=== PATIENT | female | born 2000 | race Two or more races ===

== ENCOUNTER 2024-05-22 19:30 | Observation (INO) | payer MEDICAID, SELFPAY ==
[2024-05-22 19:48] VITALS: BP 138/85; PULSE 115
[2024-05-22 19:52] VITALS: BP 141/87; PULSE 111
[2024-05-22 19:56] VITALS: BP 128/72; PULSE 105
[2024-05-22 21:08] VITALS: BMI 41.4
== END 2024-05-22 20:30 | disposition home or self-care (01) ==
PROVIDERS: Admitting Provider Obstetrics & Gynecology; Visit Provider Obstetrics & Gynecology
DX: O36.8120 Decreased fetal movements, second trimester, not applicable or unspecified (principal); Z3A.26 26 weeks gestation of pregnancy
CPT/HCPCS: 59025; 59899

== ENCOUNTER 2024-08-08 13:00 | Outpatient (RCR) | payer MEDICAID, SELFPAY ==
--- NOTE | 2024-07-25 13:26 | XR_ITS ---
Examination: Biophysical profile, ultrasound Date and time of exam: July 25, 2024 1335 hours INDICATIONS: Diagnosis obesity complicating Technique: Multiple transabdominal sonographic images of the pelvis abdomen obtained. Attention is directed to the breathing movement, gross body movement, amniotic fluid volume and tone. Findings: Amniotic fluid index 20.4 cm Total biophysical profile is 8 of 8. breathing movement is 2. Gross body movement is 2. tone is 2. Qualitative amniotic fluid volume is 2 Impression: Biophysical profile is 8 of 8.
[2024-07-25 14:31] VITALS: BP 125/67; PULSE 99; RESP 17; TEMP 36.9
--- NOTE | 2024-08-08 13:15 | XR_ITS ---
Examination: Biophysical profile, ultrasound Date and time of exam: August 08, 2024 1319 hrs. Indications: Diagnosis obesity complicating Technique: Multiple transabdominal sonographic images of the pelvis abdomen obtained. Attention is directed to the breathing movement, gross body movement, amniotic fluid volume and tone. Findings: Amniotic fluid index 17.8 cm Total biophysical profile is 8 of 8. breathing movement is 2. Gross body movement is 2. tone is 2. Qualitative amniotic fluid volume is 2 Impression: Biophysical profile is 8 of 8.
[2024-08-08 14:00] VITALS: BP 120/65; PULSE 99; RESP 17; TEMP 36.8
== END 2024-08-08 23:59 | disposition home or self-care (01) ==
LOC: S4S1 13:00
PROVIDERS: Referring Provider Nurse Practitioner Women's Health; Visit Provider Nurse Practitioner Women's Health
DX: O99.213 Obesity complicating pregnancy, third trimester (principal); E66.9 Obesity, unspecified; Z3A.37 37 weeks gestation of pregnancy
CPT/HCPCS: 59025; 76819

== ENCOUNTER 2024-08-16 01:43 | Inpatient (IN) | payer MEDICAID, SELFPAY ==
[2024-08-16] VITALS (27 sets, daily range): BP systolic 124–150; BP diastolic 60–101; PULSE 86–123; RESP 16–18; TEMP 36.6–36.9
--- NOTE | 2024-08-16 01:39 | PC.NURSE ---
08/16/24 at 0130: Cornell Yeager CNM called, aware of Induction order. Pt in route. Orders received for IOL, admit as indicated per protocol. Pt is GBS Negative. Order for Cytotec if Jett < 8, OB u/s if unable to verify presentation. May place IUPC and FSE PRN. torb and verified.
--- NOTE | 2024-08-16 01:48 | XR_ITS ---
Examination: Complete OB ultrasound greater than 14 weeks Date and time of exam: August 16, 2024 0325 hrs. Indications: Admission for labor induction, unknown presentation, unknown weight, diagnosis obesity complicating Findings: Viable intrauterine single fetus with single amniotic sac presentation cephalic Cardiac motion 137 BPM Placenta posterior grade 2 Umbilical cord insertion seen Amniotic fluid index 18.7 cm Ovaries obscured by bowel gas. Composite estimated gestational age based on BPD, head circumference, abdominal circumference, femur length is 39 weeks 0 days Estimated weight 3656 g. Survey of intracranial anatomy, spinal anatomy, abdominal anatomy, four-chamber heart performed with no abnormalities identified. Impression: Viable intrauterine gestation cephalic presentation.
[2024-08-16] MEDS: RINGERS LACTATED 1000 ML 1,000 ML 100 ML IV (02:00)
[2024-08-16 03:05] LABS: Fibrinogen 666 mg/dL (175-375); INR 0.9 (0.9-1.3); Partial Thromboplastin Time 23.5 Seconds (22.0-36.0); Prothrombin Time 9.8 Seconds (9.0-12.2)
[2024-08-16 03:31] LABS: Basophils % (Auto) 0 % (0-2.5); Eosinophils % (Auto) 0 % (0-10); Hematocrit 36.1 % (36.0-46.0); Hemoglobin 12.3 g/dL (12.0-16.0); Immature Granulocytes % (Auto) 0 % (0-0); Immature Granulocytes Auto 0.03 Thou/mm3 (0.00-0.00); Lymphocytes # (Auto) 3.6 Thou/mm3 (1.0-4.8); Lymphocytes % (Auto) 37 % (10-50); Mean Corpuscular HGB Conc 34.1 g/dl (31.0-37.0); Mean Corpuscular Hemoglobin 27.3 pg (25.0-35.0); Mean Corpuscular Volume 80 fL (80-100); Monocytes # (Auto) 0.6 Thou/mm3 (0.0-0.8); Monocytes % (Auto) 6 % (0-12); Neutrophils # (Auto) 5.4 Thou/mm3 (1.8-7.7); Neutrophils % (Auto) 56 % (37-80); Nucleated Red Blood Cell % 0 /100 WBC (0); Platelet Count 272 Thou/mm3 (140-440); Red Blood Count 4.51 Miln/mm3 (4.00-5.20); White Blood Count 9.6 Thou/mm3 (3.6-11.0)
[2024-08-16 03:47] LABS: Alanine Aminotransferase 10 U/L (10-49); Albumin/Globulin Ratio 1.4 (1.2-2.2); Alkaline Phosphatase 141 U/L (46-116); Anion Gap 10 (7-16); Aspartate Amino Transferase 12 U/L (0-34); BUN/Creatinine Ratio 18 Ratio (12-20); Bilirubin,Total 0.3 mg/dL (0.3-1.2); Blood Urea Nitrogen 9 mg/dL (9-23); Calcium 9.2 mg/dL (8.3-10.6); Calcium (Corrected) 9.2 mg/dL (8.5-10.1); Chloride 108 mMol/L (98-107); Creatinine (Component) 0.5 mg/dL (0.6-1.3); Globulin 2.9 gm/dL (2.3-3.5); Glucose 96 mg/dL (74-106); Osmolality,Calculated 274 (275-295); Potassium 4.1 mMol/L (3.4-5.1); Sodium 138 mMol/L (136-145); Total Protein 6.9 gm/dL (5.7-8.2); Uric Acid 5.4 mg/dL (3.1-7.8); eGFR > 60 See Note
[2024-08-16 04:05] LABS: Syphilis Nonreactive (Nonreactive)
[2024-08-16 04:19] LABS: Collection Type, Urine Clean Catch
[2024-08-16 04:25] LABS: Bilirubin,Urine Negative (Negative); Blood,Urine Negative (Negative); Clarity,Urine Clear (Clear/Hazy); Color,Urine Lt-Yellow (Lt Yel-Yel); Glucose, Urine Negative (Negative); Hyaline Casts,Urine < 1 /hpf (0-1); Ketones,Urine Negative (Negative); Leukocyte Esterase,Urine Negative (Negative); Nitrite,Urine Negative (Negative); Protein,Urine Negative (Neg - Trace); RBC,Urine < 1 /hpf (0-3); Squamous Epithelial Cell,Urine 1 /hpf (0-5); Urobilinogen,Urine Negative mg/dL (0.0-1.0); WBC,Urine 1 /hpf (0-5)
--- NOTE | 2024-08-16 05:49 | PRELIM_ITS ---
Obstetric ultrasound with Doppler with doppler and wave doppler spectral analysis. August 16, 2024 0325 hours Clinical history: Presentation and EFW. Comparison: No prior study is available for comparison. Findings: There is a gravid uterus with a live fetus in cephalic presentation of mean gestational age 39 weeks and 0 days (by biometry). cardiac activity is present at a heart rate of 137 beats per minute. The placenta is posterior in location, maturity grade 2. There is no evidence of placenta previa or retroplacental hemorrhage. Amniotic fluid is adequate (THANIA = 18.7 cm). Estimated weight is 3656 grams+/- 541 grams. Impression: Gravid uterus with a single live fetus in cephalic presentation of mean gestational age 39 weeks 0 days. Report Electronically Signed By: Sai Chang 08/16/2024 5:48:31 AM [EST]
[2024-08-16] MEDS: MISOPROSTOL 50 mCg TABLET PO ×4 (07:16→19:50)
[2024-08-16 08:31] LABS: Creatinine,Random Urine 86 mg/dL (30-125)
--- NOTE | 2024-08-16 09:43 | ESHP_ITS ---
Documentation for date of: 08/16/24 OB Labor/Induct. HPI History of Present Illness Chief complaint: scheduled IOL : 1 Para: 0 Term pregnancies: 0 pregnancies: 0 Living children: 0 History of Abortions: Spontaneous and Elective: 0 History of Vaginal deliveries: 0 History of sections: No History of : No Date of last menstrual period: 11/10/23 GILBERT: 08/23/24 Gestational Age (weeks): 39 Gestational Age (days): 0 Gestational age based on last menstrual period: 40 Indication for induction: medical complication (A1GDM, obesity) History of present illness: Patient presents for scheduled induction of labor. Indication: A1GDM in the setting of obesity, BMI 42. No regular/painful ctx. No LOF. No vaginal bleeding. Normal movement. History of Present Dating criteria: based on 1st trimester US only Adequate Care: Yes Obstetrical complications: gestational diabetes (diet controlled) and other (BMI 42) Labs Maternal Blood Type: A Pos Labs: Positive: Rubella Titre and Negative: RPR, Hepatitis B, HIV, Chlamydia, Gonorrhea and Group Beta Strep Review of Systems Review of Systems Narrative Review of Systems: Review of Systems Systems Reviewed: All systems reviewed, normal except as documented Constitutional Constitutional: Denies body ache(s), Denies chills, Denies fever(s) and Denies headache(s) ENT Ears, Nose, Mouth, and Throat: Denies headache(s) and Denies vertigo Cardiovascular Cardiovascular: Denies chest pain, Denies palpitations, Denies dyspnea and Denies syncope Respiratory Respiratory: Denies cough, Denies dyspnea Gastrointestinal Gastrointestinal: Denies nausea and Denies vomiting Neurologic Neurologic: Denies convulsions, Denies headache(s), Denies other visual disturbances, Denies syncope and Denies vertigo Past Medical History Family History OTHER FAMILY HX: non-contributory Surgical History SURGICAL: Negative Section OTHER SURGICAL HX: denies any Social History SOCIAL: Good social support. No ETOH, illicit drug use or tobacco use Past Medical History Comments PMH COMMENT: BMI 42 Meds Home Medications and Allergies Home Medications ?Medication ?Instructions ?Recorded ?Confirmed ?Type folic acid 0.8 mg capsule 0.8 mg PO QDAY 05/22/24 03/0 11/05 History vitamins no.159-iron 1 tab PO QDAY 05/22/24 0 08/16/24 History fumarate 28 mg-folic acid 800 mcg tablet ( Vitamin) Allergies Allergy/AdvReac Type Severity Reaction Status Date / Time No Known Allergies Allergy Verified 08/16/24 04:44 OB Exam Physical Exam Vital signs: Temp Pulse Resp BP 98.4 F 123 H 18 136/85 H 08/16/24 07:09 08/16/24 07:39 08/16/24 07:09 08/16/24 07:39 Narrative: General: well developed, well nourished, no acute distress, conversant Cardiac: normal heart rate Lungs: breathing without distress Abdomen: soft, gravid, non-tender, no rebound or guarding Extremities: no pain with palpation of calves Detailed Labor and Delivery Exam Dilation (cm): 0 Effacement (%): 0 Cervix position: posterior station: -3 Consistency: medium Presentation: Vertex Membranes: intact monitor accelerations: 15x15 monitor decelerations: None termite helper variability: Moderate (11-25) Contraction frequency (min): no ctx pattern OB Results Labs 08/16/24 01:50 08/16/24 01:58 Labs: Short CBC 08/16/24 Range/Units 01:50 WBC 9.6 (3.6-11.0) Thou/mm3 Hgb 12.3 (12.0-16.0) g/dL Hct 36.1 (36.0-46.0) % Plt Count 272 (140-440) Thou/mm3 BMP 08/16/24 08/16/24 08/16/24 01:58 01:58 01:58 Sodium Cancelled 138 Potassium Cancelled 4.1 Chloride Cancelled Carbon Dioxide BUN Creatinine Glucose Calcium 08/16/24 08/16/24 08/16/24 01:58 01:58 01:58 Sodium Potassium Chloride 108 H Carbon Dioxide Cancelled 20.0 BUN Cancelled 9 Creatinine Cancelled Glucose Calcium 08/16/24 08/16/24 08/16/24 01:58 01:58 01:58 Sodium Potassium Chloride Carbon Dioxide BUN Creatinine 0.5 L Glucose Cancelled 96 Calcium Cancelled 9.2 Liver Function 08/16/24 08/16/24 08/16/24 Range/Units 01:58 01:58 01:58 Total Bilirubin Cancelled 0.3 AST Cancelled 12 ALT Cancelled Alkaline Phosphatase Albumin 08/16/24 08/16/24 08/16/24 Range/Units 01:58 01:58 01:58 Total Bilirubin AST ALT 10 Alkaline Phosphatase Cancelled 141 H Albumin Cancelled 4.0 Urine 08/16/24 Range/Units 03:25 Urine Color Lt-Yellow (Lt Yel-Yel) Urine Clarity Clear (Clear/Hazy) Urine pH 6.0 (5.0-7.0) Ur Specific [place] 1.020 (1.001-1.035) Urine Protein Negative (Neg - Trace) Urine Glucose (UA) Negative (Negative) Impressions Impression: Examination: Complete OB ultrasound greater than 14 weeks Date and time of exam: August 16, 2024 0325 hrs. Indications: Admission for labor induction, unknown presentation, unknown weight, diagnosis obesity complicating Findings: Viable intrauterine single fetus with single amniotic sac presentation cephalic Cardiac motion 137 BPM Placenta posterior grade 2 Umbilical cord insertion seen Amniotic fluid index 18.7 cm Ovaries obscured by bowel gas. Composite estimated gestational age based on BPD, head circumference, abdominal circumference, femur length is 39 weeks 0 days Estimated weight 3656 g. Survey of intracranial anatomy, spinal anatomy, abdominal anatomy, four-chamber heart performed with no abnormalities identified. Impression: Viable intrauterine gestation cephalic presentation. OB Assessment & Plan Assessment and Plan (1) Encounter for induction of labor: Status: Acute Assessment and plan: Pricila is a 23yo with SIUP at 39&0wk presenting for IOL for A1GDM in the setting of BMI 42. SCE: fingertip/thick/-3. Vitals wnl, benign exam. Reassuring assessment overall. Cephalic on ultrasound, EFW 3656g. care: Good care with [facility] PMhx/PNC significant for: A1GDM (normal starting HgbA1c) BMI 42 Had an episode of mild range bp's in with no recurrence. On presentation had some mild range bp's that resolved to normal. 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 Discussed with patient option for parker cervical bulb once 1cm dilated and she is amenable. -Anticipate -Safe to proceed Marlen Fierro MD (2) Gestational diabetes: Status: Acute (3) Obesity affecting : Status: Acute (2) Gestational diabetes Qualifiers: Gestational diabetes mellitus control: diet-controlled Trimester: third trimester Qualified Code(s): O24.410 - Gestational diabetes mellitus in , diet controlled (3) Obesity affecting Qualifiers: Trimester: third trimester Obesity type affecting : unspecified obesity Qualified Code(s): O99.213 - Obesity complicating , third trimester
[2024-08-17] VITALS (92 sets, daily range): BP systolic 120–169; BP diastolic 67–106; PULSE 70–125; RESP 16–19; TEMP 36.7–36.9; O2SAT 97–99
--- NOTE | 2024-08-17 00:47 | PD.LDPN ---
Documentation for date of: 08/17/24 OB Labor Progress Note Pelvic Exam Dilation (cm): 1 Effacement (%): 25 station: -3 Contractions Contraction frequency: q3-5min Assessment and Plan Comments: Patient doing well, has received 4 doses of oral cytotec. Vitals: mild range bp's, afebrile Cat I FHRT Ctx q3-5min SCE: 07/08/-3, cervical parker balloon placed with 40cc NS in uterine balloon only, well tolerated Plan Await parker balloon falling out Continue cytotec overnight if ctx pattern allows Urine p:c ratio ordered this morning but only urine creatinine was performed. Will re-order with new urine sample. Continue to closely monitor bp's If bp increases into severe range, will treat with medications and initiate IV MgSO4 CEFM Safe to proceed Marlen Fierro MD
[2024-08-17] MEDS: fentaNYL CIT INJ 50 mCg/ML AMP 2ML 100 MCG IV (02:23)
[2024-08-17 04:02] LABS: Creatinine,Random Urine 90 mg/dL (30-125)
[2024-08-17 05:09] LABS: Protein Total, Random Urine 26 mg/dL (1-14)
[2024-08-17] MEDS: MISOPROSTOL 50 mCg TABLET PO ×3 (08:12→20:00)
--- NOTE | 2024-08-17 16:14 | PD.LDPN ---
Documentation for date of: 08/17/24 OB Labor Progress Note Pain Control Pain control: tolerating well Pelvic Exam Dilation (cm): 3 Effacement (%): 50 station: -3 Amniotic membrane status: Intact Contractions Monitor mode: External Contraction frequency: 2-4 Contraction duration: 60-80 Contraction phase: Contraction Contraction intensity: Moderate Status status: Category l Assessment and Plan Assessment: induction ongoing Plan OB labor note: continuous present management Comments: Cervical balloon fell out Pt has made some cervical change but fetus is still very high Pt is in high fowlers Continue cytotec Dr. Clifford updated Anticipate
--- NOTE | 2024-08-17 18:59 | PD.LDPN ---
Documentation for date of: 08/17/24 OB Labor Progress Note Pain Control Pain control: tolerating well Pelvic Exam Dilation (cm): 3 Effacement (%): 60 station: -3 Amniotic membrane status: Bulging Contractions Monitor mode: External Contraction frequency: 2-4 Contraction phase: Contraction Contraction intensity: Moderate Status status: Category l Assessment and Plan Assessment: induction ongoing Plan OB labor note: continuous present management Comments: Pt is on her 2nd round of cytotec, Pt to get her 3rd dose and then wants an epidural to help control her BPs Plan to move onto pitocin low dose after the 3rd cytotec Unable to break her water due to -[address] Clifford Anticipate
[2024-08-18] VITALS (173 sets, daily range): BP systolic 89–181; BP diastolic 58–109; PULSE 10–165; RESP 13–19; TEMP 36.6–37.2; O2SAT 90–100; BMI 43.8
[2024-08-18] MEDS: RINGERS LACTATED 1000 ML 1,000 ML 100 ML IV ×2 (00:10→05:57)
[2024-08-18] MEDS: OXYTOCIN in NS 30 units 30 UNIT/500 ML BAG IV (00:27)
--- NOTE | 2024-08-18 08:37 | ESPR_ITS ---
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 Pt s/p buccal cytotec 50 ug x 3, signed out to me at 0700. On 6 mu/min pitocin Pelvic Exam Dilation (cm): 3-4 Effacement (%): 70 station: -2 Amniotic membrane status: Bulging Comments: AROMed pt 0830, clear fluid, IUPC placed Contractions Monitor mode: External Contraction frequency: 2-4 Contraction phase: Contraction Contraction intensity: Moderate Status status: Category l Assessment and Plan Pitocin rate (mU/min): 6 Assessment: active labor Plan OB labor note: continuous present management Comments: OK for epidural, continue to increase pitocin as needed
--- NOTE | 2024-08-18 17:35 | PC.NURSE ---
into room to discuss pt poc pt has previously refused iupc, refused pitocin from md, pt states she does not know what to do, all poc options were discussed as provided by md boyd, pt has agreed to redo her epidural but has requested that we call in a different provider pt has also agreed if adequeate pain relief is achieved she will agree to pitocin to be started. rey morrison called via phone to request epidural placement, rey lucia made aware. rey snider agrees to poc. primary rn marciano hough informed of pt poc agreement.
--- NOTE | 2024-08-18 19:47 | PD.LDPN ---
Documentation for date of: 08/18/24 OB Labor Progress Note Pain Control Pain control: tolerating well and epidural Pelvic Exam Dilation (cm): 3-4 Effacement (%): 70 station: -2 Amniotic membrane status: Ruptured Contractions Monitor mode: Internal Contraction frequency: 2-4 Contraction phase: Contraction Contraction intensity: Moderate Status status: Category l Assessment and Plan Plan OB labor note: Comments: No cervical change for close to 12 hours. For primary low-transverse section for arrest of dilation at 4 cm. Patient consented all questions answered family updated at bedside.
[2024-08-18] MEDS: CITRIC ACID/SODIUM CITR 15 ML UDC (BICITRA) 30 ML PO (19:59)
[2024-08-18] MEDS: FAMOTIDINE INJ 10 MG/ML VIAL 2 ML 20 MG IV (19:59)
[2024-08-18] MEDS: ceFAZolin/D5W 1 GM IVPB 1 GM/50 ML BAG IV (19:59)
[2024-08-18] MEDS: AZITHROMYCIN 250 MG TABLET 500 MG PO (20:00)
[2024-08-18] MEDS: ceFAZolin/D5W 2 GM IV 2 GM/100 ML BAG IV (20:00)
--- NOTE | 2024-08-18 21:58 | PD.GYNPROC ---
Operative Note - PRODUCT [employer]AF[employer]Y ASSOCIATE Procedure Date of procedure: 08/18/24 Procedure Performed: Primary low-transverse section Indication: Patient is a 23-year-old originally admitted August 16, 2024 for an induction of labor secondary to maternal elevated BMI of 42 and gestational diabetes. Patient was signed out to ct 08/18/2024 at 7 in the morning. Patient had progressed to 3 to 4 cm dilatation, an amniotomy was performed and an intrauterine pressure catheter was placed. Pitocin augmentation was begun patient and pt had labor epidural placed. Despite adequate uterine contractions throughout the day patient failed to make further progress past 4 cm for greater than 10 hours and a primary was called for arrest of dilatation. Pre-Op diagnosis: 1. Intrauterine at 39-3/7 weeks 2. Arrest of dilatation at 4 cm 3. Maternal BMI of 43 Post-Op diagnosis: Same Anesthesia type: Spinal Procedure description: After obtaining informed consent, the patient was brought back to the operating room and her epidural was bolused to obtain excellent anesthesia .She was then prepped and draped in the dorsal supine position with a leftward tilt in a normal sterile fashion. A Rivas catheter had been inserted during the patient's labor. The patient was given 3 g of Ancef by anesthesia and 500 mg of azithromycin p.o. prior to incision. A Pfannenstiel skin incision was made with the scalpel and carried down to the underlying fascia. The fascia was incised the midline, and the fascial incision extended laterally using Simon scissors. The superior aspect the fascia was grasped Evelyn clamps and the underlying rectus muscles dissected off using blunt and sharp dissection. This was repeated in the inferior aspect the incision. The rectus muscles were the midline the peritoneum was picked up and entered sharply with Metzenbaums. This was extended superiorly and inferiorly with good visualization of the bladder. The bladder blade was inserted and the uterus was incised in a low transverse fashion above the bladder reflection using a scalpel. The uterine incision was extended laterally using blunt dissection with the surgeon's fingers. The bag blanco ruptured, and clear fluid was noted. The bladder blade was removed and the infant was delivered atraumatically. The cord was clamped and cut, and the was handed off to the waiting pediatric staff. Cord blood was collected. Cord gases were saved. The placenta was then manually removed and the uterus cleared exteriorized and cleared of all clots and debris. The uterine incision was repaired using 0 Monocryl in a running locked fashion. Excellent hemostasis was noted. The uterus was returned to the patient's abdominal cavity, and copious irrigation carried out with warm normal saline. The uterine incision was reexamined, and noted be hemostatic. After ensuring the rectus muscles were hemostatic, these were reapproximated the midline using a running suture of 0 Monocryl. The fascia was closed with 0 Vicryl in a running fashion. The subcutaneous tissues were irrigated and found to be hemostatic. These were reapproximated using a running suture of 3-0 plain. Skin was closed with subcuticular suture of 4-0 Vicryl. The patient tolerated the procedure well. Sponge lap instrument and needle counts were correct were correct x 2, patient went to the recovery area awake and in stable condition. The baby was doing well with mom and dad in recovery in stable condition. Fluids: crystalloid Fluid amount (mL): 1,000 Urine output (mL): 25 Specimen: none Implants: None Estimated blood loss (ml): 300 Findings: Liveborn female in the OT presentation with a loose nuchal and body cord x 1 no meconium .Apgars were 8 and 9 weight was 7 pounds 4 ounces the placenta was complete spontaneous grossly normal tubes uterus ovaries appeared grossly normal. Complications: none Surgical staff Operation Date: 08/18/24 20:15 <No data on this case meets the specified criteria> Diagnosis Discharge Diagnosis (1) Obesity affecting : Status: Acute (2) Gestational diabetes: Status: Acute (3) Delivery by section of full-term : Status: Acute Problem List Completed Was Problem List Reviewed/Reconciled?: Yes (1) Obesity affecting Qualifiers: Trimester: third trimester Obesity type affecting : unspecified obesity Qualified Code(s): O99.213 - Obesity complicating , third trimester (2) Gestational diabetes Qualifiers: Gestational diabetes mellitus control: diet-controlled Trimester: third trimester Qualified Code(s): O24.410 - Gestational diabetes mellitus in , diet controlled
[2024-08-19 00:30] VITALS: BP 143/84; PULSE 88; RESP 18; TEMP 36.4; O2SAT 98
[2024-08-19] MEDS: KETOROLAC INJ 30 MG/ML VIAL IVP ×2 (00:51→08:20)
[2024-08-19 04:55] VITALS: BP 139/84; PULSE 84; RESP 16; TEMP 36.6; O2SAT 97
[2024-08-19] MEDS: OXYTOCIN in NS 20 units 20 UNIT/1,000 ML BAG 125 UNIT IV (05:02)
[2024-08-19 06:23] LABS: Basophils % (Auto) 0 % (0-2.5); Eosinophils % (Auto) 0 % (0-10); Hematocrit 30.5 % (36.0-46.0); Hemoglobin 10.6 g/dL (12.0-16.0); Immature Granulocytes % (Auto) 0 % (0-0); Immature Granulocytes Auto 0.07 Thou/mm3 (0.00-0.00); Lymphocytes % (Auto) 12 % (10-50); Mean Corpuscular HGB Conc 34.8 g/dl (31.0-37.0); Mean Corpuscular Hemoglobin 27.8 pg (25.0-35.0); Mean Corpuscular Volume 80 fL (80-100); Monocytes # (Auto) 0.4 Thou/mm3 (0.0-0.8); Monocytes % (Auto) 3 % (0-12); Neutrophils # (Auto) 14.2 Thou/mm3 (1.8-7.7); Neutrophils % (Auto) 85 % (37-80); Nucleated Red Blood Cell % 0 /100 WBC (0); Platelet Count 223 Thou/mm3 (140-440); RDW Standard Deviation 38.2 fL (36.4-46.3); Red Blood Count 3.81 Miln/mm3 (4.00-5.20); White Blood Count 16.7 Thou/mm3 (3.6-11.0)
[2024-08-19 07:45] VITALS: BP 131/77; PULSE 82; RESP 18; TEMP 36.6; O2SAT 98
[2024-08-19] MEDS: DOCUSATE SOD 100 MG CAPSULE PO (08:19)
--- NOTE | 2024-08-19 09:04 | PD.LDPPPRG ---
Subjective Subjective Interval history: Patient is a 23-year-old -0-0-1 status post primary last evening August 18, 2024 at approximately 2100. Patient is in bed today and feels sore. Her Rivas catheter has been discontinued. She is tolerating general diet. She is unsure whether she is going to breast-feed or bottle feed. Her [id number] and father of the baby are at bedside. Exam Vital Signs Temp Pulse Resp BP Pulse Ox O2 Del Method 97.9 F 82 18 131/77 H 98 Room Air 08/19/24 07:45 08/19/24 07:45 08/19/24 07:45 08/19/24 07:45 08/19/24 07:45 08/19/24 07:45 Narrative Exam Patient is alert and oriented x 3 in no apparent distress with good color. IV fluids are still in place. Detailed Abdominal Exam Comments: Abdomen fundus firm nontender dressing on incision clean dry and intact. Routine Extremities Exam Comments: No sinus clubbing or edema Objective Labs 08/19/24 05:04 08/16/24 01:58 Labs: Laboratory Results - last 24 hr 08/19/24 05:04 WBC 16.7 H D RBC 3.81 L Hgb 10.6 L Hct 30.5 L MCV 80 MCH 27.8 MCHC 34.8 RDW Std Deviation 38.2 Plt Count 223 D Neut % (Auto) 85 H Lymph % (Auto) 12 [place] % (Auto) 3 Eos % (Auto) 0 Baso % (Auto) 0 Neut # (Auto) 14.2 H Lymph # (Auto) 2.0 [place] # (Auto) 0.4 Eos # (Auto) 0.0 Baso # (Auto) 0.0 Immature Gran # (Auto) 0.07 H Absolute Nucleated RBC 0.00 Immature Gran % 0 Nucleated RBC % 0 Assessment & Plan Problem List (1) Obesity affecting : Problem details: Bridged weight loss and healthy eating also moderate exercise when cleared. Status: Acute (2) Gestational diabetes: Problem details: Encouraged healthy eating and lifestyle. Status: Acute (3) Delivery by section of full-term infant: Problem details: Encouraged ambulation. Transfer to p.o. pain medications. Ambulate in halls. Status: Acute Time Spent With Patient Time: Total time spent is greater than 50% in coordination of care (as documented) at patient's floor/unit and/or counseling patient: Time with patient: less than 15 minutes
[2024-08-19 11:30] VITALS: BP 131/92; PULSE 100; RESP 18; TEMP 36.4; O2SAT 97
[2024-08-19] MEDS: IBUPROFEN TAB 400 MG TABLET 800 MG PO (11:52)
[2024-08-19 16:50] VITALS: BP 147/92; PULSE 97; RESP 17; TEMP 36.6; O2SAT 98
[2024-08-19] MEDS: HYDROcodone/APAP 5/325 TABLET 1 TAB PO (16:51)
[2024-08-19 20:35] VITALS: BP 145/93; PULSE 104; RESP 18; RESP 98; TEMP 36.5; O2SAT 98
[2024-08-19] MEDS: KETOROLAC 10 MG TABLET PO (23:20)
[2024-08-20] MEDS: KETOROLAC 10 MG TABLET PO ×2 (05:49→11:51)
[2024-08-20 05:52] VITALS: BP 126/78; PULSE 103; RESP 18; TEMP 36.4; O2SAT 99
[2024-08-20 08:12] VITALS: BP 131/79; PULSE 106; RESP 18; TEMP 36.7; O2SAT 99
[2024-08-20] MEDS: DOCUSATE SOD 100 MG CAPSULE PO (09:27)
--- NOTE | 2024-08-20 09:33 | ESDS_ITS ---
DS: Providers Provider Date of admission: 08/16/24 01:43 Primary care physician: Physician No Primary/Family Admitting Provider: Jackelin Clifford MD Attending Provider on Admission: Marlen Fierro MD Consults: 08/18/24 22:13 Referral Routine Comment: Attending Provider on DC: Marlen Fierro MD Discharging Provider: Marlen Fierro MD DS: Diagnosis Discharge Diagnosis (1) Delivery by section of full-term infant: Status: Acute (2) Arrest of dilation, delivered, current hospitalization: Status: Acute (3) Obesity affecting : Status: Acute (4) Gestational diabetes: Status: Acute Problem List Completed Was Problem List Reviewed/Reconciled?: Yes Summary/Hosp Course Brief History: Patient presents for scheduled induction of labor. Indication: A1GDM in the setting of obesity, BMI 42. No regular/painful ctx. No LOF. No vaginal bleeding. Normal movement. She is doing well on post-op day 2 s/p uncomplicated PLTCS for arrest of dilation. She has had an uncomplicated post-operative course, meeting all milestones and feels ready for discharge home. She is ambulating without lightheadedness, tolerating regular diet no n/v, spontaneously voiding without issue. She has no chest pain or shortness of breath. No fevers or chills. Pain well controlled. Vitals normal, benign exam. Hemodynamically stable with no evidence of infection. Post-op Hgb 10.6. Peripartum Data Procedures: Procedures Operation Date: 08/18/24 20:15 Actual Procedure Side Surgeon p in OB Not Applicable Jessi Roger ([facility])MD Status at Discharge Functional status at discharge: independent ambulation Overall status at discharge: patient is back to baseline Time Spent with Patient Time attestation: Total time spent providing and/or coordinating discharge services: Exam Vital Signs Temp Pulse Resp BP Pulse Ox O2 Del Method 98.1 F 106 H 18 131/79 H 99 Room Air 08/20/24 08:12 08/20/24 08:12 08/20/24 08:12 08/20/24 08:12 08/20/24 08:12 08/20/24 08:12 Narrative Exam General: well developed, well nourished, no acute distress, conversant Cardiac: normal heart rate Lungs: breathing without distress Abdomen: soft, post-gravid, non-tender, no rebound or guarding, pfannenstiel incision covered by dry/clean/intact prineo bandage. Incision well reapproximated. No erythema, drainage or induration. Fundus firm at u-2cm. Extremities: no pain with palpation of calves, 2+ edema of BLE Discharge Plan Plan Patient Disposition: HOME (Self Care) Patient condition on transfer: Stable Prescriptions/Referrals Prescriptions/Med Rec: New hydrocodone-acetaminophen 5-325 mg Tablet 1 tab PO Q6H MDD 4 tablets PRN (Reason: Patient rated pain 7 to 8) 10 Days Qty: 12 0RF ibuprofen 800 mg tablet 800 mg PO X1 PRN (Reason: uterine cramping) 10 Days Qty: 30 0RF polyethylene glycol 3350 [Miralax] 17 gram powder in packet 17 g PO QDAY Qty: 14 0RF Continued Vitamin 28 mg iron- 800 mcg Tablet 1 tab PO QDAY Discontinued folic acid 0.8 mg Capsule 0.8 mg PO QDAY Referrals: No Primary/Family,Physician [Primary Care Provider] - Patient/Caregiver Discharge Instructions Discharge Activity: activity as tolerated and other Other Discharge Activity Instructions:: vaginal rest and no heavy lifting more than 10 pounds for 6 weeks. [address] while taking narcotic. keep incision clean and dry, do not submerge. Other Discharge Diet Instructions: Regular Education Materials: C Section Dc Print Language: Mongolian Activity Restrictions/Additional Instructions: follow up in 1 week for incision check, call clinic for appointment Stand Alone Forms: Gregoria Award Info., Patient Portal Info Letter Discharge Order Discharge Orders: Discharge (Routine); Ordered 08/20/24 Ordered By: Marlen Fierro Planned Discharge Date 08/20/24 (3) Obesity affecting Qualifiers: Trimester: third trimester Obesity type affecting : unspecified obesity Qualified Code(s): O99.213 - Obesity complicating , third trimester (4) Gestational diabetes Qualifiers: Gestational diabetes mellitus control: diet-controlled Trimester: third trimester Qualified Code(s): O24.410 - Gestational diabetes mellitus in , diet controlled
[2024-08-20 12:20] VITALS: BP 129/85; PULSE 120; RESP 20; TEMP 36.7; O2SAT 99
[2024-08-20 13:00] VITALS: PULSE 108
[2024-08-20] MEDS: HYDROcodone/APAP 5/325 TABLET 1 TAB PO (13:13)
== END 2024-08-20 15:45 | disposition home or self-care (01) | DRG 540 ==
LOC: S4SX 08-18 21:39 → S4NX 08-18 21:56
PROVIDERS: Nurse Practitioner Women's Health; Obstetrics & Gynecology; Admitting Provider Student in an Organized Health Care Education/Training Program; Visit Provider Obstetrics & Gynecology
PROC: (CPT 59514; principal; 2024-08-18 20:00)
DX: O24.420 Gestational diabetes mellitus in childbirth, diet controlled (principal); O62.0 Primary inadequate contractions; O69.82X0 Labor and delivery complicated by other cord entanglement, without compression, not applicable or unspecified; O99.214 Obesity complicating childbirth; O69.81X0 Labor and delivery complicated by cord around neck, without compression, not applicable or unspecified; Z37.0 Single live birth; Z3A.39 39 weeks gestation of pregnancy
CPT/HCPCS: 36415; 59409; 76805; 80053; 81001; 82570; 82575; 84156; 84550; 85025; 85384; 85610; 85730; 86780; 86850; 86900; 86901; 94762; A4649; J0689; J1100; J1885; J2371; J2405; J2590; J2795; J3010; J3490; J7120; A9270